=== PATIENT | female | born 1940 | race Caucasian/White ===

== ENCOUNTER 2018-09-05 17:33 | Emergency (ER) | payer OTHER ==
[~2018-09-05] VITALS: Ht 142.2 cm; Wt 57.7 kg
--- NOTE | 2018-09-05 17:35 | NUR ---
PT SAMMY SIGALA, SENT TO TRIAGE
[2018-09-05 17:40] VITALS: BP 175/103
--- NOTE | 2018-09-05 17:44 | NUR ---
PT WHEEL CHAIR ASSITED TO THE LOBBY, XRAY'S ORDERED, CONE BAKER MACHINEJOCELYNN PIERRE, DR ORDAZ NOTIFIED
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
--- NOTE | 2018-09-05 19:10 | NUR ---
RECEIVED REPORT FROM KEVIN CABEZAS. TRANSFER OF CARE AT THIS TIME.
--- NOTE | 2018-09-05 20:35 | NUR ---
DR. TOLENTINO UTILIZING LANGUAGE LINE FARSI WITH [employer].
--- NOTE | 2018-09-05 21:05 | NUR ---
PATIENT TAKEN TO CT WITH TECH.
--- NOTE | 2018-09-05 21:20 | NUR ---
PATIENT RETURN FROM CT.
[2018-09-05 22:30] VITALS: BP 135/85
--- NOTE | 2018-09-05 22:30 | NUR ---
Patient discharged with v/s stable. Written and verbal after care instructions given and explained. Patient alert, oriented and verbalized understanding of instructions. Ambulatory with steady gait. All questions addressed prior to discharge. ID band removed. Patient advised to follow up with PMD. Rx of AUGMENTIN 875MG given. Patient educated on indication of medication including possible reaction and side effects. Opportunity to ask questions provided and answered.
== END 2018-09-05 22:30 | disposition home or self-care (01) ==
LOC: MED 17:33
DX: S60.052A Contusion of left little finger without damage to nail, initial encounter (principal); I10 Essential (primary) hypertension; Z90.710 Acquired absence of both cervix and uterus; W18.39XA Other fall on same level, initial encounter; Y93.89 Activity, other specified; Y92.89 Other specified places as the place of occurrence of the external cause; Y99.8 Other external cause status
CPT/HCPCS: 70450; 72125; 72128; 73130; 90471; 90715; 99284; Q0092